=== PATIENT | male | born 1970 | race Caucasian/White ===

== ENCOUNTER 2018-09-16 12:37 | Outpatient (CLI) | payer OTHER, SELFPAY ==
[2018-09-16 15:10] LABS: Abs Immature Grans 0.02 k/cumm (0.0-0.09); Absolute Basophil Count 0.02 k/cumm (0.0-0.2); Absolute Eosinophil Count 0.16 k/cumm (0.0-0.7); Absolute Lymphocyte Count 1.29 k/cumm (1.2-3.4); Absolute Monocyte Count 0.78 k/cumm (0.11-0.7); Absolute Neutrophil Count 6.65 k/cumm (1.2-6.7); Basophils % 0.2; Eosinophils % 1.8; HGB 15.8 g/dL (13.5-17.5); Immature Grans % 0.2; Lymphocytes % 14.5; Mean Corp. HGB Concentration 33.6 g/dL (32.0-36.0); Mean Corpuscular Hemoglobin 34.6 pg (27.0-33.0); Mean Corpuscular Volume 103.1 fL (80-95); Mean Platelet Volume 9.5 fL (8.0-11.0); Monocytes % 8.7; Neutrophils % 74.6; Platelet Count 257 x1000/uL (130-400); RBC 4.56 m/cumm (4.50-6.00); RBC Distribution Width 12.6 % (11.8-14.1); White Blood Cell Count 8.92 k/cumm (4.4-10.8)
[2018-09-16 15:32] LABS: Bilirubin Negative (Negative); Blood Negative (Negative); Clarity Clear; Glucose Negative (Negative); Ketones Trace mg/dL (Negative); Leukocyte Esterase Negative (Negative); Nitrite Negative (Negative); Specific Gravity >= 1.030 (1.005-1.025); Urobilinogen 0.2 EU/dL (Up TO 0.2); pH 5.5 (5-8)
[2018-09-16 15:46] LABS: Bacteria Rare HPF (Negative); C & S Indicated? No; Casts Negative LPF (Negative); Crystals Negative HPF (Negative); Epithelial Cells Rare HPF (Negative); Mucus Negative (Negative); Other Cells Negative (Negative); RBC Negative (0-2); WBC 0-2 HPF (0-5)
[2018-09-16 16:01] LABS: ESR 11 MM/HR (0-15)
[2018-09-16 17:07] LABS: ALT 30 U/L (12-78); AST 19 U/L (15-37); Albumin 3.6 g/dL (3.4-5.0); Alkaline Phosphatase 58 U/L (46-116); Anion Gap 8.3 mmol/L (3-11); BUN 19 mg/dL (7-18); Bilirubin, Total 0.4 mg/dL (0.2-1.0); CO2 29.7 mmol/L (21.0-32.0); CREATININE 0.93 mg/dL (0.70-1.30); Chloride 103 mmol/L (98-107); Glucose 89 mg/dL (70-100); Potassium 4.2 mmol/L (3.5-5.1); Sodium 141 mmol/L (136-145)
== END 2018-09-16 12:57 ==
PROVIDERS: PCP Emergency Medicine; Visit Provider Internal Medicine Rheumatology
DX: M31.30 Wegener's granulomatosis without renal involvement (principal); Z79.899 Other long term (current) drug therapy
CPT/HCPCS: 36415; 80053; 85652; 81003; 81015; 85025

== ENCOUNTER 2019-04-22 13:23 | Outpatient (CLI) | payer OTHER, SELFPAY ==
[2019-04-22 14:09] LABS: Abs Immature Grans 0.03 k/cumm (0.0-0.09); Absolute Basophil Count 0.03 k/cumm (0.0-0.2); Absolute Eosinophil Count 0.14 k/cumm (0.0-0.7); Absolute Lymphocyte Count 1.43 k/cumm (1.2-3.4); Absolute Monocyte Count 0.74 k/cumm (0.11-0.7); Absolute Neutrophil Count 5.32 k/cumm (1.2-6.7); Basophils % 0.4; Eosinophils % 1.8; HCT 45.7 % (40.0-50.0); HGB 15.5 g/dL (13.5-17.5); Immature Grans % 0.4; Lymphocytes % 18.6; Mean Corp. HGB Concentration 33.9 g/dL (32.0-36.0); Mean Corpuscular Hemoglobin 34.8 pg (27.0-33.0); Mean Corpuscular Volume 102.5 fL (80-95); Mean Platelet Volume 9.7 fL (8.0-11.0); Monocytes % 9.6; Neutrophils % 69.2; Platelet Count 250 x1000/uL (130-400); RBC 4.46 m/cumm (4.50-6.00); RBC Distribution Width 12.7 % (11.8-14.1); White Blood Cell Count 7.69 k/cumm (4.4-10.8)
[2019-04-22 14:49] LABS: ESR 12 MM/HR (0-15)
[2019-04-22 14:53] LABS: Bilirubin Negative (Negative); Blood Negative (Negative); Clarity Clear (Clear); Glucose Negative (Negative); Ketones Trace mg/dL (Negative); Leukocyte Esterase Negative (Negative); Nitrite Negative (Negative); Specific Gravity 1.025 (1.005-1.025); Urobilinogen 0.2 EU/dL (Up TO 0.2); pH 5.5 (5-8)
[2019-04-22 15:04] LABS: Bacteria Negative HPF (Negative); C & S Indicated? No; Casts Negative LPF (Negative); Crystals Negative HPF (Negative); Epithelial Cells Negative HPF (Negative); Mucus Trace (Negative); RBC Negative (0-2); WBC 0-2 HPF (0-5)
[2019-04-22 15:44] LABS: ALT 43 U/L (12-78); AST 28 U/L (15-37); Albumin 3.6 g/dL (3.4-5.0); Alkaline Phosphatase 59 U/L (46-116); Anion Gap 6.9 mmol/L (3-11); BUN 17 mg/dL (7-18); Bilirubin, Total 0.5 mg/dL (0.2-1.0); CO2 29.1 mmol/L (21.0-32.0); CREATININE 0.82 mg/dL (0.70-1.30); Calcium 8.8 mg/dL (8.5-10.1); Chloride 103 mmol/L (98-107); Glucose 84 mg/dL (70-100); Potassium 4.2 mmol/L (3.5-5.1); Sodium 139 mmol/L (136-145)
== END 2019-04-22 13:43 ==
PROVIDERS: PCP Emergency Medicine; Visit Provider Internal Medicine Rheumatology
DX: M31.30 Wegener's granulomatosis without renal involvement (principal); Z79.899 Other long term (current) drug therapy
CPT/HCPCS: 36415; 80053; 85652; 81003; 81015; 85025

== ENCOUNTER 2019-10-29 11:49 | Outpatient (CLI) | payer OTHER, SELFPAY ==
[2019-10-29 15:06] LABS: Abs Immature Grans 0.02 k/cumm (0.0-0.09); Absolute Basophil Count 0.02 k/cumm (0.0-0.2); Absolute Eosinophil Count 0.15 k/cumm (0.0-0.7); Absolute Lymphocyte Count 1.45 k/cumm (1.2-3.4); Absolute Monocyte Count 0.73 k/cumm (0.11-0.7); Absolute Neutrophil Count 4.74 k/cumm (1.2-6.7); Basophils % 0.3; Eosinophils % 2.1; HCT 47.5 % (40.0-50.0); Immature Grans % 0.3 %; Lymphocytes % 20.4; Mean Corp. HGB Concentration 33.7 g/dL (32.0-36.0); Mean Corpuscular Hemoglobin 34.2 pg (27.0-33.0); Mean Corpuscular Volume 101.5 fL (80-95); Mean Platelet Volume 9.4 fL (8.0-11.0); Monocytes % 10.3; Neutrophils % 66.6; Platelet Count 291 x1000/uL (130-400); RBC 4.68 m/cumm (4.50-6.00); RBC Distribution Width 12.6 % (11.8-14.1); White Blood Cell Count 7.11 k/cumm (4.4-10.8)
[2019-10-29 15:10] LABS: Bilirubin Negative (Negative); Blood Negative (Negative); Clarity Clear (Clear); Glucose Negative (Negative); Ketones Negative (Negative); Leukocyte Esterase Negative (Negative); Nitrite Negative (Negative); Specific Gravity >= 1.030 (1.005-1.025); Urobilinogen 0.2 EU/dL (Up TO 0.2); pH 5.5 (5-8)
[2019-10-29 15:22] LABS: Bacteria Negative HPF (Negative); Crystals Negative HPF (Negative); Epithelial Cells Negative HPF (Negative); Mucus Trace (Negative); Other Cells Negative (Negative); RBC 0-2 HPF (0-2); WBC 0-2 HPF (0-5)
[2019-10-29 15:23] LABS: C & S Indicated? No; Casts 0-2 Hyaline LPF (Negative)
[2019-10-29 15:53] LABS: ALT 38 U/L (16-63); AST 26 U/L (15-37); Albumin 3.6 g/dL (3.4-5.0); Alkaline Phosphatase 54 U/L (46-116); Anion Gap 7.2 mmol/L (3-11); BUN 21 mg/dL (7-18); Bilirubin, Total 0.4 mg/dL (0.2-1.0); CO2 28.8 mmol/L (21.0-32.0); CREATININE 1.21 mg/dL (0.70-1.30); Calcium 8.7 mg/dL (8.5-10.1); Chloride 105 mmol/L (98-107); Glucose 90 mg/dL (74-106); Potassium 4.1 mmol/L (3.5-5.1); Sodium 141 mmol/L (136-145)
[2019-10-29 18:16] LABS: ESR 13 mm/hr (1-20)
== END 2019-10-29 12:09 ==
PROVIDERS: PCP Emergency Medicine; Visit Provider Internal Medicine Rheumatology
DX: M31.30 Wegener's granulomatosis without renal involvement (principal); Z79.899 Other long term (current) drug therapy
CPT/HCPCS: 36415; 80053; 85652; 81003; 81015; 85025

== ENCOUNTER 2020-04-15 03:28 | Outpatient (CLI) | payer OTHER, SELFPAY ==
[2020-04-15 14:29] LABS: Abs Immature Grans 0.02 k/cumm (0.0-0.09); Absolute Basophil Count 0.02 k/cumm (0.0-0.2); Absolute Eosinophil Count 0.09 k/cumm (0.0-0.7); Absolute Lymphocyte Count 1.15 k/cumm (1.2-3.4); Absolute Monocyte Count 0.68 k/cumm (0.11-0.7); Absolute Neutrophil Count 6.36 k/cumm (1.2-6.7); Basophils % 0.2; Eosinophils % 1.1; HCT 46.6 % (40.0-50.0); Immature Grans % 0.2 %; Lymphocytes % 13.8; Mean Corp. HGB Concentration 34.3 g/dL (32.0-36.0); Mean Corpuscular Hemoglobin 35.2 pg (27.0-33.0); Mean Corpuscular Volume 102.6 fL (80-95); Mean Platelet Volume 9.6 fL (8.0-11.0); Monocytes % 8.2; Neutrophils % 76.5; Platelet Count 292 x1000/uL (130-400); RBC 4.54 m/cumm (4.50-6.00); RBC Distribution Width 12.7 % (11.8-14.1); White Blood Cell Count 8.32 k/cumm (4.4-10.8)
[2020-04-15 14:37] LABS: Bilirubin Negative (Negative); Blood Negative (Negative); Clarity Clear (Clear); Glucose Negative (Negative); Ketones Negative (Negative); Leukocyte Esterase Negative (Negative); Nitrite Negative (Negative); Specific Gravity >= 1.030 (1.005-1.025); Urobilinogen 0.2 EU/dL (Up TO 0.2)
[2020-04-15 15:11] LABS: ESR 10 mm/hr (1-20)
[2020-04-15 16:52] LABS: ALT 36 U/L (16-63); AST 26 U/L (15-37); Albumin 3.8 g/dL (3.4-5.0); Alkaline Phosphatase 51 U/L (46-116); Anion Gap 9.7 mmol/L (3-11); BUN 18 mg/dL (7-18); Bilirubin, Total 0.5 mg/dL (0.2-1.0); CO2 26.3 mmol/L (21.0-32.0); CREATININE 0.95 mg/dL (0.70-1.30); Calcium 9.1 mg/dL (8.5-10.1); Chloride 105 mmol/L (98-107); Glucose 80 mg/dL (74-106); Potassium 4.3 mmol/L (3.5-5.1); Sodium 141 mmol/L (136-145); Total Protein 7.3 g/dL (6.4-8.2)
[2020-04-18 17:49] LABS: Calculated LDL 82 mg/dL (<100); Cholesterol 139 mg/dL (<200); HDL Cholesterol 49 mg/dL (40-60); Triglyceride 43 mg/dL (<150)
== END 2020-04-15 03:48 ==
PROVIDERS: PCP Emergency Medicine; Visit Provider Internal Medicine Rheumatology
DX: M31.30 Wegener's granulomatosis without renal involvement (principal); Z79.899 Other long term (current) drug therapy
CPT/HCPCS: 36415; 80053; 80061; 85652; 81003; 85025

== ENCOUNTER 2020-10-14 02:56 | Outpatient (CLI) | payer OTHER, SELFPAY ==
[2020-10-14 14:55] LABS: Abs Immature Grans 0.03 10^3/uL (0.0-0.06); Absolute Basophil Count 0.04 10^3/uL (0.0-0.2); Absolute Eosinophil Count 0.19 10^3/uL (0.0-0.7); Absolute Lymphocyte Count 1.44 10^3/uL (1.2-3.4); Absolute Monocyte Count 0.88 10^3/uL (0.1-0.8); Absolute Neutrophil Count 5.77 10^3/uL (1.2-6.7); Basophils % 0.5; Bilirubin Negative (Negative); Blood Negative (Negative); Clarity Clear (Clear); Eosinophils % 2.3; Glucose Negative (Negative); HCT 48.3 % (40.0-50.0); HGB 16.5 g/dL (13.5-17.5); Immature Grans % 0.4; Ketones Negative (Negative); Leukocyte Esterase Negative (Negative); Lymphocytes % 17.2; MCH 34.9 pg (27.0-33.0); MCHC 34.2 % (32.0-36.0); MCV 102.1 fL (80-95); MPV 9.4 fL (8.0-11.0); Monocytes % 10.5; Neutrophils % 69.1; Nitrite Negative (Negative); Nucleated RBC 0 %; Platelet Count 285 10^3/uL (130-400); RBC 4.73 10^6/uL (4.36-5.78); RDW 12.3 % (11.8-14.1); RDW-SD 47.5 fL; Specific Gravity >= 1.030 (1.005-1.025); Urobilinogen 0.2 EU/dL (Up TO 0.2); WBC 8.35 10^3/uL (4.4-10.8); pH 5.5 (5-8)
[2020-10-14 15:20] LABS: Bacteria Few HPF (Negative); C & S Indicated? Yes; Casts Negative LPF (Negative); Crystals Negative HPF (Negative); Epithelial Cells Negative HPF (Negative); Mucus Trace (Negative); RBC 0-2 HPF (0-2)
[2020-10-14 15:41] LABS: ALT 34 U/L (16-63); AST 23 U/L (15-37); Albumin 3.7 g/dL (3.4-5.0); Alkaline Phosphatase 59 U/L (46-116); BUN 25 mg/dL (7-18); Bilirubin, Total 0.4 mg/dL (0.2-1.0); Calcium 8.8 mg/dL (8.5-10.1); Chloride 104 mmol/L (98-107); Glucose 85 mg/dL (74-106); Potassium 4.4 mmol/L (3.5-5.1); Sodium 139 mmol/L (136-145); Total Protein 7.3 g/dL (6.4-8.2)
[2020-10-14 16:08] LABS: ESR 12 mm/hr (1-20)
== END 2020-10-14 03:16 ==
PROVIDERS: PCP Emergency Medicine; Visit Provider Internal Medicine Rheumatology
DX: M31.30 Wegener's granulomatosis without renal involvement (principal); Z79.899 Other long term (current) drug therapy
CPT/HCPCS: 36415; 80053; 85652; 81003; 81015; 85025; 87086

== ENCOUNTER 2021-04-20 15:33 | Outpatient (CLI) | payer OTHER, SELFPAY ==
[2021-04-20 15:57] LABS: Abs Immature Grans 0.05 10^3/uL (0.0-0.06); Absolute Basophil Count 0.06 10^3/uL (0.0-0.2); Absolute Eosinophil Count 0.08 10^3/uL (0.0-0.7); Absolute Lymphocyte Count 1.18 10^3/uL (1.2-3.4); Absolute Monocyte Count 0.82 10^3/uL (0.1-0.8); Absolute Neutrophil Count 8.03 10^3/uL (1.2-6.7); Basophils % 0.6; Eosinophils % 0.8; HCT 44.5 % (40.0-50.0); Immature Grans % 0.5; Lymphocytes % 11.5; MCH 34.6 pg (27.0-33.0); MCHC 33.7 % (32.0-36.0); MCV 102.8 fL (80-95); Neutrophils % 78.6; Nucleated RBC 0 %; Platelet Count 319 10^3/uL (130-400); RBC 4.33 10^6/uL (4.36-5.78); RDW 12.6 % (11.8-14.1); RDW-SD 47.4 fL; WBC 10.22 10^3/uL (4.4-10.8)
[2021-04-20 15:58] LABS: ESR 11 mm/hr (0-20)
[2021-04-20 16:01] LABS: Bilirubin Negative (Negative); Blood Negative (Negative); Clarity Clear (Clear); Glucose Negative (Negative); Ketones Negative (Negative); Leukocyte Esterase Negative (Negative); Nitrite Negative (Negative); Specific Gravity >= 1.030 (1.005-1.025); Urobilinogen 0.2 EU/dL (Up TO 0.2); pH 5.5 (5-8)
[2021-04-20 16:11] LABS: Bacteria Negative HPF (Negative); Crystals Negative HPF (Negative); Epithelial Cells Rare HPF (Negative); RBC 0-2 HPF (0-2); WBC 0-2 HPF (0-5)
[2021-04-20 16:12] LABS: C & S Indicated? No; Casts Negative LPF (Negative); Mucus Trace (Negative)
[2021-04-20 16:46] LABS: ALT 34 U/L (16-63); AST 24 U/L (15-37); Albumin 3.5 g/dL (3.4-5.0); Alkaline Phosphatase 56 U/L (46-116); Anion Gap 7.1 mmol/L (3-11); BUN 21 mg/dL (7-18); Bilirubin, Total 0.4 mg/dL (0.2-1.0); CO2 27.9 mmol/L (21.0-32.0); CREATININE 1.1 mg/dL (0.70-1.30); Calcium 8.9 mg/dL (8.5-10.1); Chloride 106 mmol/L (98-107); Glucose 88 mg/dL (74-106); Potassium 4.3 mmol/L (3.5-5.1); Sodium 141 mmol/L (136-145)
== END 2021-04-20 15:34 | disposition home or self-care (01) ==
PROVIDERS: PCP Emergency Medicine; Visit Provider Internal Medicine Rheumatology
DX: M31.30 Wegener's granulomatosis without renal involvement (principal); Z79.899 Other long term (current) drug therapy
CPT/HCPCS: 80053; 85652; 81003; 81015; 85025

== ENCOUNTER 2021-10-13 03:48 | Outpatient (CLI) | payer OTHER, SELFPAY ==
[2021-10-13 15:07] LABS: Abs Immature Grans 0.05 10^3/uL (0.0-0.06); Absolute Basophil Count 0.05 10^3/uL (0.0-0.2); Absolute Eosinophil Count 0.15 10^3/uL (0.0-0.7); Absolute Lymphocyte Count 1.22 10^3/uL (1.2-3.4); Absolute Monocyte Count 0.81 10^3/uL (0.1-0.8); Absolute Neutrophil Count 7.11 10^3/uL (1.2-6.7); Basophils % 0.5; Eosinophils % 1.6; HCT 45.6 % (40.0-50.0); HGB 15.2 g/dL (13.5-17.5); Immature Grans % 0.5; MCH 34.5 pg (27.0-33.0); MCHC 33.3 % (32.0-36.0); MCV 103.4 fL (80-95); Monocytes % 8.6; Neutrophils % 75.8; Nucleated RBC 0 %; RBC 4.41 10^6/uL (4.36-5.78); RDW 12.3 % (11.8-14.1); RDW-SD 47.4 fL; WBC 9.39 10^3/uL (4.4-10.8)
[2021-10-13 15:24] LABS: Diff Comment PLT Morph Reviewed; RBC Morphology Normal
[2021-10-13 16:10] LABS: Calculated LDL 87 mg/dL (<100); Cholesterol 147 mg/dL (<200); HDL Cholesterol 46 mg/dL (40-60); Triglyceride 73 mg/dL (<150)
[2021-10-13 16:40] LABS: ALT 37 U/L (16-63); AST 29 U/L (15-37); Albumin 3.6 g/dL (3.4-5.0); Alkaline Phosphatase 61 U/L (46-116); Anion Gap 7.9 mmol/L (3-11); BUN 20 mg/dL (7-18); Bilirubin, Total 0.4 mg/dL (0.2-1.0); C-Reactive Protein 0.65 mg/dL (0.0-0.3); CO2 28.1 mmol/L (21.0-32.0); CREATININE 0.9 mg/dL (0.70-1.30); Calcium 8.5 mg/dL (8.5-10.1); Chloride 102 mmol/L (98-107); Glucose 80 mg/dL (74-106); Potassium 4.5 mmol/L (3.5-5.1); Sodium 138 mmol/L (136-145); Total Protein 7.5 g/dL (6.4-8.2)
[2021-10-16 09:45] LABS: PSA, Screening 3.6 ng/mL (0.0-3.5)
== END 2021-10-13 03:49 | disposition home or self-care (01) ==
LOC: LBO 03:48
PROVIDERS: Internal Medicine Rheumatology; PCP Nurse Practitioner Family; Visit Provider Nurse Practitioner Family
DX: Z13.220 Encounter for screening for lipoid disorders (principal); Z12.5 Encounter for screening for malignant neoplasm of prostate; M31.30 Wegener's granulomatosis without renal involvement; Z79.899 Other long term (current) drug therapy
CPT/HCPCS: 36415; 80053; 80061; 84153; 85025; 86140

== ENCOUNTER 2021-11-09 03:01 | Outpatient (CLI) | payer OTHER, SELFPAY ==
[2021-11-09 14:40] LABS: Abs Immature Grans 0.04 10^3/uL (0.0-0.06); Absolute Basophil Count 0.05 10^3/uL (0.0-0.2); Absolute Eosinophil Count 0.15 10^3/uL (0.0-0.7); Absolute Lymphocyte Count 1.31 10^3/uL (1.2-3.4); Absolute Monocyte Count 0.69 10^3/uL (0.1-0.8); Absolute Neutrophil Count 5.18 10^3/uL (1.2-6.7); Basophils % 0.7; HCT 43.2 % (40.0-50.0); HGB 14.3 g/dL (13.5-17.5); Immature Grans % 0.5; Lymphocytes % 17.7; MCHC 33.1 % (32.0-36.0); MCV 102.6 fL (80-95); Monocytes % 9.3; Neutrophils % 69.8; Nucleated RBC 0 %; Platelet Count 359 10^3/uL (130-400); RBC 4.21 10^6/uL (4.36-5.78); RDW 12.4 % (11.8-14.1); RDW-SD 46.4 fL; WBC 7.42 10^3/uL (4.4-10.8)
[2021-11-09 15:25] LABS: ALT 26 U/L (16-63); AST 18 U/L (15-37); Albumin 3.4 g/dL (3.4-5.0); Alkaline Phosphatase 62 U/L (46-116); Anion Gap 6.7 mmol/L (3-11); BUN 17 mg/dL (7-18); Bilirubin, Total 0.3 mg/dL (0.2-1.0); C-Reactive Protein 0.86 mg/dL (0.0-0.3); CO2 28.3 mmol/L (21.0-32.0); CREATININE 0.9 mg/dL (0.70-1.30); Calcium 8.7 mg/dL (8.5-10.1); Chloride 103 mmol/L (98-107); Glucose 88 mg/dL (74-106); Potassium 4.5 mmol/L (3.5-5.1); Sodium 138 mmol/L (136-145); Total Protein 7.2 g/dL (6.4-8.2)
== END 2021-11-09 03:02 | disposition home or self-care (01) ==
LOC: LBO 03:01
PROVIDERS: PCP Nurse Practitioner Family; Visit Provider Internal Medicine Rheumatology
DX: M31.30 Wegener's granulomatosis without renal involvement (principal); Z79.899 Other long term (current) drug therapy
CPT/HCPCS: 36415; 80053; 85025; 86140

== ENCOUNTER 2022-02-05 06:13 | Day surgery (SDC) | payer OTHER, SELFPAY ==
--- NOTE | 2022-02-04 18:22 | W.ANESPRE ---
General Info Date of Service Date Performed: 02/05/22 Height: 5 ft 9 in Weight: 112.491 kg Body Mass Index (BMI): 36.6 Surgical Procedure: Operation Date: 02/05/22 07:35 Proposed Procedure Side Surgeon p Colonoscopy Lian Pavon MD Meds Allergies and Home Medications Allergies Allergy/AdvReac Type Severity Reaction Status Date / Time codeine AdvReac Intermediate vomiting Verified 02/05/22 06:32 Home Medication Medication Instructions Recorded azathioprine 50 mg tablet 100 mg PO DAILY tab 06/08/21 cholecalciferol (vitamin D3) 25 25 mcg PO DAILY 06/08/21 mcg (1,000 unit) capsule cyanocobalamin (vitamin B-12) 5,000 mcg PO .weekly cap 06/08/21 5,000 mcg capsule folic acid 1 mg tablet 1 mg PO DAILY 06/08/21 losartan 100 mg tablet 100 mg PO HS 06/08/21 bisacodyl 5 mg tablet,delayed 5 mg PO ONCE #4 tab 01/12/22 release (Dulcolax (bisacodyl)) polyethylene glycol 3350 17 17 g PO ONCE #238 g 01/12/22 gram/dose oral powder Current Visit Medications: Current Medications Generic Name Dose Route Start Last Admin Trade Name Freq PRN Reason Stop Dose Admin Ringer's Solution 1,000 mls @ 80 mls/hr 02/05/22 06:00 IV 03/04/22 23:59 INFUSION SERGE IV Miscellaneous Supplies 1 each 02/05/22 06:00 Iv Access IV 03/04/22 23:59 DIRECTED SERGE Sodium Chloride 0 ml 02/05/22 06:00 Normal Saline Flush 10 Ml Syr IV 03/04/22 23:59 PRN PRN Sodium Chloride 0 ml 02/05/22 06:00 Normal Saline 10 Ml Vial IJ 03/04/22 23:59 DIRECTED PRN Sterile Water 0 ml 02/05/22 06:00 Water,Injection,Sterile 10 Ml Vial IJ 03/04/22 23:59 DIRECTED PRN PFSH Active Problems Active Problems: Problem Status Onset Code Screening for colon cancer Z12.11 Medical History Medical History Essential (primary) hypertension Granulomatosis with polyangiitis Right knee pain Surgical History Surgical History History of appendectomy Tobacco Smoking/Tobacco Use Status: Never Passive smoking exposure: Yes Second hand exposure: Yes Alcohol Alcohol Intake: never Substance Use Substance use: Never Substance use type: does not use Vital Signs and Lab Results Lab Results Blood Type / Crossmatch: No Data to Display Complete Blood Count: No Data to Display Complete Metabolic Panel: No Data to Display Liver Function Panel: No Data to Display Coagulation Panel: No Data to Display Cardiac Panel: No Data to Display Arterial Blood Gas: No Data to Display Venous Blood Gas: No Data to Display Pancreas Panel: No Data to Display Thyroid Panel: No Data to Display Infectious Disease: No Data to Display Blood Cultures: No Data to Display Toxicology Panel: No Data to Display Anesthesia Assessment and Plan Anesthesia History Personal History: No History of Anesthesia Complications Family History: No Family History of Anesthesia Complications and Family History Unknown Exercise Tolerance Exercise Tolerance: Metabolic Equivalents>4 Cardiac & Pulmonary Exam Cardiac Exam: Normal S1/S2 Heart Sounds Pulmonary Exam: Clear Bilateral Breath Sounds Implantable Cardiac Device Does patient have a Pacemaker or an ICD?: No Airway Exam Known Difficult Airway: No Mallampati Class: 3 Mouth Opening: Narrow (< 3cm) Thyromental Distance: Greater than 3 cm Neck Range of Motion: Full ROM Neck Circumference: Normal Teeth Condition: Normal Dentition ASA Classification ASA Score: ASA 2 Emergency Case?: No NPO Status NPO Status: NPO Clears >2 hours, Solids >8 hours Anesthesia Plan Resuscitation Status: Full Code Anesthesia Technique: General Anesthesia Airway Planned: Natural Airway Monitors Used: Standard Monitors Preoperative Comments:: 51 yo male for screening colo. Sig PMHx: HTN (losartan),granulomatosis with polyangitis, fascioscapulohumeral muscular dystrophy, never smoker/EtOH.
[2022-02-05 06:35] VITALS: BP 150/103; PULSE 87; RESP 18; TEMP 36.5; O2SAT 98
--- NOTE | 2022-02-05 06:35 | W.COLOREPORT ---
Colonoscopy Report Date of procedure: 02/05/22 Pre-op diagnosis general: Colon Cancer Screening Post-op diagnosis procedure note: other (polyps and diverticulosis) Procedure: Colonoscopy with polypectomy Surgeon: Lian Pavon Anesthesia Type: General:No Airway Estimated blood loss (mL): 3 Pathology: other (Transverse polyp) Complications: None Disposition: same day Indications: 51 y/o male with history of HTN and? Geri's granulomatosis presents for his first colonoscopy screening pre-op. He denies a family history of colon cancer. He denies any changes in bowel habits including bloody or black tarry stools, abdominal pain, diarrhea or constipation.? Prep: Miralax/Dulcolax Procedure Start Time: 07:26 Procedure End Time: 07:47 Retraction Time: 12 minutes Findings: One sessile polyp Moderate sigmoid diverticulosis Procedure Description: After informed consent was obtained the patient was taken to the procedure room and placed in a left decubitous position. Monitors were applied and a time out was done. The patients name, date of , procedure, allergies to medications and metal in their body was reviewed. The patient was then sedated. Once sedated and comfortable a rectal exam was done. External exam was normal. Internal exam revealed a normal sphincter tone and no palpable masses. The prostate felt smooth. The scope was then introduced and retro-flexed. No internal hemorrhoids, polyps or masses were identified on retro-flexion. The scope was then advanced to the cecum without difficulty. The ileocecal vlave and appendiceal orifice were identified. The prep was good. The scope was then slowly retracted over 12 minutes back into the rectum. Polyps were removed with cold forceps in the Transverse colon. There was moderate sigmoid diverticulosis noted. The scope was removed and the patient was woken up and taken back to Same day surgery in stable condition. The patient tolerated the procedure well and there were no immediate complications. Follow up: The patient should follow up in 5 years unless they develop changes in bowel habits or other new gastrointestinal complaints.
--- NOTE | 2022-02-05 06:37 | W.PM.DSUDISC ---
Discharge Plan Disposition Patient Disposition: HOME Condition: Good Discharge Details Reason For Visit: Colonoscopy Attending Provider: Lian Pavon Primary Care Provider: Sukhdev Guadalupe Home Meds and New Rx's Prescriptions: Continued folic acid 1 mg tablet 1 mg PO DAILY 0RF cholecalciferol (vitamin D3) 25 mcg (1,000 unit) capsule 25 mcg PO DAILY 0RF losartan 100 mg tablet 100 mg PO HS 0RF azathioprine 50 mg tablet 100 mg PO DAILY 0RF cyanocobalamin (vitamin B-12) 5,000 mcg capsule 5,000 mcg PO .weekly 0RF Discontinued bisacodyl [Dulcolax (bisacodyl)] 5 mg tablet,delayed release (DR/EC) 5 mg PO ONCE Qty: 4 0RF Rx Instructions: Take according to provider's instructions for colonoscopy prep. polyethylene glycol 3350 17 gram/dose powder 17 g PO ONCE Qty: 238 0RF Rx Instructions: To be taken as directed by prescriber's office for colonoscopy prep. Discharge Instructions Instructions: Diverticulosis (DC), Colorectal Polyps (DC) Additional Instructions: Findings: one polyp diverticulosis Follow up: 5 years Please call if you develop: fevers >101.5 Nausea or Vomiting Abdominal pain that is not transient Rectal bleeding that is more then a tbsp A hard abdomen and inability to pass gas DAY SURGERY UNIT POST ENDOSCOPY INSTRUCTIONS Instructions for everyone who is given Anesthesia: For your safety, please do the following for the next 24 Hours: a. Do not drive or operate dangerous equipment b. Do not drink alcohol beverages or use any recreational drugs for the first 24 hours or while taking pain medications. The medications in your body may have a reaction that can be dangerous. c. Do not make any important decisions or sign any important papers 1. Generally there are no restrictions on your activity after a day or so has gone by, but you may feel a bit fatigued for a few days. 2. After you arrive home you may have a light meal and return to a normal diet as you can tolerate it without feeling sick to your stomach. 3. After surgery, you may feel pain or discomfort. This should be only transient, but if it persists please contact your doctor. 4. If there are any questions regarding the findings of your procedure, please feel free to contact your doctor. 6. If you are unable to contact your doctor with a problem, contact the hospital at [phone]. 2. Continue all your regular medications unless directed otherwise. I understand the above instructions and have no questions. Signature of Patient or Responsible Adult Escort Date/Time Name of Responsible Adult Escort Signature of Nurse Date/Time Activity:: Activity as Tolerated Diet:: high fiebr diet Discharge Orders Discharge Orders: Discharge Order (Routine); Ordered 02/05/22 Ordered By: Lian Pavon
[2022-02-05] MEDS: Lactated Ringers 1,000 ML 80 ML IV (06:45)
[2022-02-05 06:56] VITALS: BMI 36.6
--- NOTE | 2022-02-05 07:40 | BOWEL_PTH ---
PATIENT: Bijan Carr LOC: [facility] U#:[id number] AGE/SX: 51/M ROOM: RE02/05/[address]: Lian Pavon MD : [id number] BED: DIS: 02/05/2022 SPEC #: [id number] RECD: 02/05/22 12:39 STATUS: DIONICIO REQ #: [id number] NICHOLAS: 02/05/22 07:[address]: Lian Pavon DEPT: Surgical Specimen RECD BY: Debbie Martinez ENTERED: 02/05/22 12:39 SP TYPE: Bowel OTHR DR: Sukhdev Guadalupe, HUI Tissues: 1 - BIOPSY BOWEL Procedures: GROSS AND MICRO LEVEL 4 Comments: [id number]
[2022-02-05 07:58] VITALS: BP 139/69; PULSE 74; RESP 17; TEMP 36.4; O2SAT 96
--- NOTE | 2022-02-05 08:01 | W.ANESPOSTOP ---
Postoperative Evaluation Date, Time and Location Date Performed: 02/05/22 Time Performed: 08:01 Patient Location: Day Surgery Unit Vital Signs Most Recent Imported Vital Signs: Most Recent Vital Signs Temp Pulse Resp BP Pulse Ox 36.4 C L 74 17 139/69 96 02/05/22 07:58 02/05/22 07:58 02/05/22 07:58 02/05/22 07:58 02/05/22 07:58 Pain Score Most Recent Pain Score: Most Recent Pain Score Pain Level 0 02/05/22 07:58 Assessment Mental Status: Arousable with meaningful communication Airway and Respiratory Function: Patent airway with normal (patient baseline) respiratory exam Cardiovascular Function: Hemodynamically Stable Hydration Status: Adequately Hydrated Nausea & Vomiting: No Nausea or Vomiting Pain: Pt. Denies Any Pain Peripheral Nerve Block: Patient did not receive a nerve block
[2022-02-05 08:16] VITALS: BP 136/95; PULSE 67; RESP 18; TEMP 36.7; O2SAT 96
== END 2022-02-05 09:17 | disposition home or self-care (01) ==
PROVIDERS: PCP Nurse Practitioner Family; Visit Provider Surgery
PROC: 0DJD8ZZ Inspection of Lower Intestinal Tract, Via Natural or Artificial Opening Endoscopic (ICD-10-PCS; CPT 45378; principal; 2022-02-05 07:30)
DX: Z12.11 Encounter for screening for malignant neoplasm of colon (principal); K63.5 Polyp of colon; K57.30 Diverticulosis of large intestine without perforation or abscess without bleeding
CPT/HCPCS: 45380; 88305

== ENCOUNTER 2022-04-12 04:08 | Outpatient (CLI) | payer OTHER, SELFPAY ==
[2022-04-12 15:08] LABS: ESR 16 mm/hr (0-20)
[2022-04-12 15:09] LABS: Abs Immature Grans 0.04 10^3/uL (0.0-0.06); Absolute Basophil Count 0.05 10^3/uL (0.0-0.2); Absolute Eosinophil Count 0.16 10^3/uL (0.0-0.7); Absolute Monocyte Count 0.84 10^3/uL (0.1-0.8); Absolute Neutrophil Count 7.92 10^3/uL (1.2-6.7); Basophils % 0.5; Eosinophils % 1.6; HCT 45.6 % (40.0-50.0); HGB 15.6 g/dL (13.5-17.5); Immature Grans % 0.4; Lymphocytes % 10.9; MCH 34.3 pg (27.0-33.0); MCHC 34.2 % (32.0-36.0); MCV 100 fL (80-95); MPV 9.6 fL (8.0-11.0); Monocytes % 8.3; Neutrophils % 78.3; Platelet Count 306 10^3/uL (130-400); RBC 4.55 10^6/uL (4.36-5.78); RDW 13.2 % (11.8-14.1); WBC 10.11 10^3/uL (4.4-10.8)
[2022-04-12 16:15] LABS: ALT 30 U/L (16-63); AST 23 U/L (15-37); Albumin 3.4 g/dL (3.4-5.0); Alkaline Phosphatase 59 U/L (46-116); Anion Gap 7.8 mmol/L (3-11); BUN 22 mg/dL (7-18); Bilirubin, Total 0.3 mg/dL (0.2-1.0); CO2 26.2 mmol/L (21.0-32.0); CREATININE 0.8 mg/dL (0.70-1.30); Calcium 8.6 mg/dL (8.5-10.1); Chloride 103 mmol/L (98-107); Glucose 91 mg/dL (74-106); Potassium 4.4 mmol/L (3.5-5.1); Sodium 137 mmol/L (136-145); Total Protein 7.5 g/dL (6.4-8.2)
== END 2022-04-12 04:09 | disposition home or self-care (01) ==
LOC: LBO 04:08
PROVIDERS: PCP Nurse Practitioner Family; Visit Provider Internal Medicine Rheumatology
DX: M31.30 Wegener's granulomatosis without renal involvement (principal); Z79.899 Other long term (current) drug therapy
CPT/HCPCS: 36415; 80053; 85652; 85025; 86140

== ENCOUNTER 2022-10-22 03:09 | Outpatient (CLI) | payer OTHER, SELFPAY ==
[2022-10-22 14:49] LABS: Abs Immature Grans 0.03 10^3/uL (0.0-0.06); Absolute Basophil Count 0.05 10^3/uL (0.0-0.2); Absolute Eosinophil Count 0.14 10^3/uL (0.0-0.7); Absolute Lymphocyte Count 1.18 10^3/uL (1.2-3.4); Absolute Monocyte Count 0.76 10^3/uL (0.1-0.8); Absolute Neutrophil Count 7.25 10^3/uL (1.2-6.7); Basophils % 0.5; Eosinophils % 1.5; HCT 48.8 % (40.0-50.0); HGB 16.2 g/dL (13.5-17.5); Immature Grans % 0.3; Lymphocytes % 12.5; MCH 33.9 pg (27.0-33.0); MCHC 33.2 % (32.0-36.0); MCV 102 fL (80-95); MPV 9.3 fL (8.0-11.0); Monocytes % 8.1; Neutrophils % 77.1; Platelet Count 299 10^3/uL (130-400); RBC 4.78 10^6/uL (4.36-5.78); RDW 12.7 % (11.8-14.1); RDW-SD 48.5 fL; WBC 9.41 10^3/uL (4.4-10.8)
[2022-10-22 14:53] LABS: ESR 26 mm/hr (0-20)
[2022-10-22 15:53] LABS: ALT 23 U/L (16-63); AST 24 U/L (15-37); Albumin 2.9 g/dL (3.4-5.0); Alkaline Phosphatase 59 U/L (46-116); Anion Gap 2.9 mmol/L (3-11); BUN 24 mg/dL (7-18); Bilirubin, Total 0.3 mg/dL (0.2-1.0); C-Reactive Protein 0.31 mg/dL (0.0-0.3); CO2 30.1 mmol/L (21.0-32.0); CREATININE 1.1 mg/dL (0.70-1.30); Calcium 8.7 mg/dL (8.5-10.1); Chloride 104 mmol/L (98-107); Estimated GFR 79.77 (mL/min/1.73m2); Glucose 93 mg/dL (74-106); Potassium 5.3 mmol/L (3.5-5.1); Sodium 137 mmol/L (136-145); Total Protein 7.4 g/dL (6.4-8.2)
== END 2022-10-22 03:10 | disposition home or self-care (01) ==
PROVIDERS: PCP Nurse Practitioner Family; Visit Provider Internal Medicine Rheumatology
DX: M31.30 Wegener's granulomatosis without renal involvement (principal); Z79.899 Other long term (current) drug therapy
CPT/HCPCS: 36415; 80053; 85652; 85025; 86140

== ENCOUNTER 2022-11-23 01:15 | Outpatient (CLI) | payer OTHER, SELFPAY ==
[2022-11-23 15:20] LABS: Abs Immature Grans 0.06 10^3/uL (0.0-0.06); Absolute Basophil Count 0.05 10^3/uL (0.0-0.2); Absolute Eosinophil Count 0.22 10^3/uL (0.0-0.7); Absolute Lymphocyte Count 0.93 10^3/uL (1.2-3.4); Absolute Monocyte Count 0.88 10^3/uL (0.1-0.8); Absolute Neutrophil Count 6.53 10^3/uL (1.2-6.7); Basophils % 0.6; Eosinophils % 2.5; HCT 47.6 % (40.0-50.0); HGB 15.5 g/dL (13.5-17.5); Immature Grans % 0.7; Lymphocytes % 10.7; MCH 33.3 pg (27.0-33.0); MCHC 32.6 % (32.0-36.0); MCV 102 fL (80-95); MPV 9.3 fL (8.0-11.0); Monocytes % 10.1; Neutrophils % 75.4; Platelet Count 273 10^3/uL (130-400); RBC 4.65 10^6/uL (4.36-5.78); RDW-SD 49.6 fL; WBC 8.67 10^3/uL (4.4-10.8)
[2022-11-23 15:59] LABS: Iron 76 ug/dL (65-175); Total Iron Binding Capacity 233 ug/dL (250-450)
[2022-11-23 16:01] LABS: Ferritin 221 ng/mL (26-388); TSH (W/Ref FT4) 2.63 uIU/mL (0.36-3.74)
[2022-11-26 13:19] LABS: Transferrin 204 mg/dL (201-352)
== END 2022-11-23 01:16 | disposition home or self-care (01) ==
LOC: LBO 01:15
PROVIDERS: PCP Nurse Practitioner Family; Visit Provider Nurse Practitioner Family
DX: R53.83 Other fatigue (principal)
CPT/HCPCS: 36415; 82728; 83540; 83550; 84443; 84466; 85025

== ENCOUNTER 2023-01-25 09:47 | Outpatient (CLI) | payer OTHER, SELFPAY ==
--- NOTE | 2023-01-25 08:30 | DI.RAD_ITS ---
Exam(s) XR KNEE RT 3V AP,LAT,ADARSH EXAM: XR KNEE RT 3V AP,LAT,ADARSH CLINICAL HISTORY: right knee pain. TECHNIQUE: 2D digital imaging was performed. COMPARISON: No exams were available for comparison FINDINGS: 3 views No since acute fracture although there does appear to be a joint effusion. There is moderate narrowi ng of the medial compartment. Lateral compartment exhibits normal height. Some degenerative change also noted in the patellofemoral compartment. No significant osseous lesions. IMPRESSION: Degenerative changes. Joint effusion. DATA REPOSITORY: RADIATION DOSE DELIVERED:
== END 2023-01-25 09:48 | disposition home or self-care (01) ==
LOC: DIORS 09:47
PROVIDERS: PCP Nurse Practitioner Family; Referring Provider Nurse Practitioner Family; Visit Provider Physician Assistant
DX: M25.561 Pain in right knee (principal); M25.461 Effusion, right knee
CPT/HCPCS: 73562

== ENCOUNTER 2023-02-18 01:37 | Outpatient (CLI) | payer OTHER, SELFPAY ==
--- NOTE | 2023-02-18 08:21 | DI.MRI_ITS ---
Exam(s) MR LOWER JOINT RT WO EXAM: MR LOWER JOINT RT WO CLINICAL HISTORY: PAIN,internal derangement rt knee, m23.91. TECHNIQUE: Multiplanar multisequence MRI was performed. COMPARISON: CR XR KNEE RT 3V AP,LAT,ADARSH from 01/25/2023 FINDINGS: BONES: There is no fracture or contusion pattern. High signal in medial femoral condyle medial tibial plateau consistent with degenerative changes. Spicy leave the tibial spines of small adjacent cysts , also consistent with degenerative changes. JOINTS: A moderate-sized joint effusion is present. Articular cartilage: Patellofemoral joint: Thinning. No focal defect. Some periarticular spurring. Medial femoral tibial joint: Cartilage thinning. No focal defect. Lateral femoral tibial joint: Articular cartilage is unremarkable. TENDONS: Extensor mechanism: Unremarkable. Medial retinaculum: Unremarkable. Lateral retinaculum: Unremarkable. Popliteus: Unremarkable. MUSCLES: Unremarkable. MENISCI: The medial meniscus is diminutive. Findings could represent prior partial meniscectomy. Ab normal high signal seen in posterior horn suspicious for superimposed tear.. The lateral meniscus is unremarkable. SOFT TISSUES: Mild subcutaneous edema. LIGAMENTS: Anterior Cruciate: Markedly thinned. Some fibers appear intact. Posterior Cruciate: Edema. Some intact fibers. Findings could represent tear versus mucoid degenera tion. Medial Collateral:Unremarkable. Lateral Collateral: Unremarkable. IMPRESSION: Apparent prior partial medial meniscectomy. Superimposed tear in the posterior horn. Abnormal appearance of anterior and posterior cruciate ligaments which could represent partial tear v ersus mucoid degeneration. Degenerative changes with cartilage thinning of the medial femoral tibial and patellofemoral joints. DATA REPOSITORY:
== END 2023-02-18 01:57 ==
LOC: DI 01:37
PROVIDERS: PCP Nurse Practitioner Family; Visit Provider Student in an Organized Health Care Education/Training Program
DX: M23.251 Derangement of posterior horn of lateral meniscus due to old tear or injury, right knee (principal); S83.241S Other tear of medial meniscus, current injury, right knee, sequela; X58.XXXA Exposure to other specified factors, initial encounter
CPT/HCPCS: 73721

== ENCOUNTER 2023-04-04 04:19 | Outpatient (CLI) | payer OTHER, SELFPAY ==
[2023-04-04 15:31] LABS: Abs Immature Grans 0.06 10^3/uL (0.0-0.06); Absolute Basophil Count 0.05 10^3/uL (0.0-0.2); Absolute Eosinophil Count 0.25 10^3/uL (0.0-0.7); Absolute Lymphocyte Count 0.94 10^3/uL (1.2-3.4); Absolute Monocyte Count 0.77 10^3/uL (0.1-0.8); Absolute Neutrophil Count 6.12 10^3/uL (1.2-6.7); Basophils % 0.6; Eosinophils % 3.1; HCT 40.9 % (40.0-50.0); HGB 13.8 g/dL (13.5-17.5); Immature Grans % 0.7; Lymphocytes % 11.5; MCH 34.8 pg (27.0-33.0); MCHC 33.7 % (32.0-36.0); MCV 103 fL (80-95); MPV 9.4 fL (8.0-11.0); Monocytes % 9.4; Neutrophils % 74.7; Platelet Count 280 10^3/uL (130-400); RBC 3.97 10^6/uL (4.36-5.78); RDW 13.1 % (11.8-14.1); RDW-SD 49.6 fL; WBC 8.19 10^3/uL (4.4-10.8)
[2023-04-04 15:34] LABS: ESR 31 mm/hr (0-20)
[2023-04-04 15:38] LABS: Bilirubin Negative (Negative); Blood Moderate (Negative); Clarity Clear (Clear); Glucose Negative (Negative); Ketones Negative (Negative); Leukocyte Esterase Negative (Negative); Nitrite Negative (Negative); Specific Gravity 1.025 (1.005-1.025); Urobilinogen 0.2 mg/dL (Up to 0.2); pH 5.5 (5-8)
[2023-04-04 15:46] LABS: Bacteria Negative HPF (Negative); C & S Indicated? No; Casts Negative LPF (Negative); Crystals Negative HPF (Negative); Epithelial Cells Rare HPF (Negative); Mucus Moderate (Negative); WBC 0-2 HPF (0-5)
[2023-04-04 16:00] LABS: ALT 20 U/L (16-63); AST 23 U/L (15-37); Albumin 1.7 g/dL (3.4-5.0); Alkaline Phosphatase 53 U/L (46-116); Anion Gap 3.1 mmol/L (3-11); BUN 26 mg/dL (7-18); Bilirubin, Total 0.2 mg/dL (0.2-1.0); C-Reactive Protein 0.52 mg/dL (0.0-0.3); CO2 27.9 mmol/L (21.0-32.0); CREATININE 1.4 mg/dL (0.70-1.30); Calcium 7.9 mg/dL (8.5-10.1); Chloride 107 mmol/L (98-107); Estimated GFR 59.73 (mL/min/1.73m2); Glucose 84 mg/dL (74-106); Potassium 5.2 mmol/L (3.5-5.1); Sodium 138 mmol/L (136-145); Total Protein 6.1 g/dL (6.4-8.2)
[2023-04-04 16:04] LABS: COMMENT (LAB VIEW ONLY) 113.75 mg/dL; Prot/Crea Ur Ratio 3.48
[2023-04-04 16:39] LABS: PROTEIN > 1000.0 mg/dL
== END 2023-04-04 04:20 | disposition home or self-care (01) ==
LOC: LBO 04:19
PROVIDERS: PCP Nurse Practitioner Family; Visit Provider Internal Medicine Rheumatology
DX: M31.30 Wegener's granulomatosis without renal involvement (principal); R60.9 Edema, unspecified; Z79.899 Other long term (current) drug therapy
CPT/HCPCS: 36415; 80053; 85652; 81003; 81015; 82565; 84156; 85025; 86140

== ENCOUNTER 2023-05-01 03:44 | Outpatient (CLI) | payer OTHER, SELFPAY ==
[2023-05-01 11:01] LABS: Abs Immature Grans 0.16 10^3/uL (0.0-0.06); Absolute Basophil Count 0.05 10^3/uL (0.0-0.2); Absolute Monocyte Count 0.78 10^3/uL (0.1-0.8); Basophils % 0.4; Eosinophils % 0.9; HCT 41.5 % (40.0-50.0); HGB 14.2 g/dL (13.5-17.5); Immature Grans % 1.4; Lymphocytes % 10.3; MCH 35.9 pg (27.0-33.0); MCHC 34.2 % (32.0-36.0); MCV 105 fL (80-95); MPV 9.6 fL (8.0-11.0); Monocytes % 6.7; Neutrophils % 80.3; Platelet Count 148 10^3/uL (130-400); RBC 3.96 10^6/uL (4.36-5.78); RDW 13.7 % (11.8-14.1); RDW-SD 53.5 fL; WBC 11.62 10^3/uL (4.4-10.8)
[2023-05-01 11:04] LABS: Absolute Neutrophil Count 9.33 10^3/uL (1.2-6.7)
[2023-05-01 11:30] LABS: ALT 23 U/L (16-63); AST 23 U/L (15-37); Albumin 1.8 g/dL (3.4-5.0); Alkaline Phosphatase 46 U/L (46-116); Anion Gap 3.7 mmol/L (3-11); BUN 33 mg/dL (7-18); Bilirubin, Total 0.3 mg/dL (0.2-1.0); CO2 27.3 mmol/L (21.0-32.0); CREATININE 1.6 mg/dL (0.70-1.30); Chloride 108 mmol/L (98-107); Estimated GFR 50.88 (mL/min/1.73m2); Glucose 83 mg/dL (74-106); Potassium 5.3 mmol/L (3.5-5.1); Sodium 139 mmol/L (136-145); Total Protein 5.1 g/dL (6.4-8.2)
[2023-05-01 11:38] LABS: COMMENT (LAB VIEW ONLY) 194.44 mg/dL
[2023-05-01 11:54] LABS: PROTEIN > 1000.0 mg/dL
== END 2023-05-01 03:45 | disposition home or self-care (01) ==
LOC: LBO 03:44
PROVIDERS: PCP Nurse Practitioner Family; Visit Provider Internal Medicine Rheumatology
DX: M31.30 Wegener's granulomatosis without renal involvement (principal)
CPT/HCPCS: 36415; 80053; 82565; 84156; 85025

== ENCOUNTER 2023-05-05 10:04 | Inpatient (IN) | payer OTHER, SELFPAY ==
[2023-05-05] VITALS (22 sets, daily range): BP systolic 156–197; BP diastolic 94–121; PULSE 68–125; RESP 17–23; TEMP 36.6; O2SAT 86–100
--- NOTE | 2023-05-05 10:00 | RT.EKG_ITS ---
APPROVED REPORT Exam: Resting ECG Reason for Exam: chest pain Patient Location: E HR:102 bpm ECG Measurements Heart Rate 102 AXIS [place] 170 P 37 QRSd 117 QRS -60 QT 334 T 72 QTc 436 Conclusion Sinus tachycardia...rate> 99 Left atrial enlargement...P, P'>60mS, <-0.15mV V1 Incomplete right bundle branch block...QRSd >112, terminal axis(90,270) Left ventricular hypertrophy...multiple LVH criteria ST elevation secondary to LVH...Multiple VCG criteria Sinus tachycardia at a rate of 102 with incomplete right bundle branch block pattern with left axis d eviation and ST segment elevation in lead III. No prior for comparison. No ST segment depressions. ST segment elevation in aVR. No prior for comparison. QTc within normal limits. KY within normal limits.
--- NOTE | 2023-05-05 10:09 | ED.GENADUL_ITS ---
Discharge Plan Disposition Patient Disposition: Admit to [facility] Discharge Details Clinical Impression: Acute respiratory failure with hypoxia and hypercarbia, Hyperkalemia, Pulmonary embolism, bilateral, Pleural effusion on left Admit Date/Time: 05/05/23 13:39 Admit Provider: Mai Pond Attending Provider: Mai Pond Primary Care Provider: Sukhdev Guadalupe ED Provider: Gonzales Mitchell Discharge Data Discharge Date/Time-TO BE ENTERED AT DEPARTURE: 05/05/23 14:14 Medical Decision Making This is an obese hypoxic and hypertensive 52-year-old male with granulomatosis with polyangiitis now with acute hypoxic respiratory failure and chest pain. His presentation is concerning for PE. He does have ST segment elevation in lead III but sub millimeter and not in two contiguous leads so I do not feel that he is a TNK candidate. We will obtain a troponin to assess for ACS. He does have lower extremity pitting edema and 30 pound unintentional weight gain over the past 6 weeks on steroids. He has no signs of heart failure on ultrasound however and he appears to have a normal ejection fraction. He has had no fevers to suggest pneumonia. No vomiting to suggest esophageal rupture. No tearing quality to his pain to suggest aortic dissection. Will obtain a venous blood gas to assess for hypercarbia. It is certainly possible that given his obesity he could have an element of pulmonary hypertension. On apical four chamber view it did appear that his LV was approximately equal to his RV. He has not taken his home antihypertensives yet today. Will hold these until his PE study has been completed. Anticipate that he will require hospitalization given his respiratory failure. He has no prolonged expiratory phase nor is he a smoker to suggest exacerbation of reactive airway disease. 11:11 AM Venous blood gas with very mild hypercarbia. No acidemia. CBC with no anemia thrombocytopenia nor leukocytosis. 11:26 AM CBC with mild hyperkalemia with a serum potassium of 5.3. No MICAH but CKD. No anion gap. Normal bicarbonate. Negative troponin. Lipase within normal limits. Repeat ECG showing normal sinus rhythm at a rate of 91. Normal axis. No ST segment elevations. ST segment elevation in aVR improved. Appears improved compared to prior. Patient reports no change in his chest pain. Will provide a 500 cc fluid bolus given hyperkalemia. Patient is on 3 L of oxygen via nasal cannula. 12:10 PM I received a call from virtual radiology as patient had bilateral PEs. No reported signs of right heart strain. Will initiate heparin drip.I also added on proBNP. 1:05 PM proBNP reassuring. 1:33 PM I spoke to Dr. Sams from cards [place] [facility] who advised local hospitalization. She advised re-consultation if hemodynamics changes. She felt that patient would not meet criteria for thrombectomy. She advised bilateral lower extremity duplexes and echocardiogram. If the patient had significant clot burden on duplex studies or any signs of RV dysfunction on echocardiogram she advised reconsult ation. Otherwise she advised local hospitalization. I will order studies and reach out to hospitalist team. Patient is on losartan and this certainly could be the cause of his mild hyperkalemia. This is not likely a good medication for the patient moving forward as he has been hyperkalemic in the past. I spoke with Dr. Pond who graciously agreed to accept the patient for hospitalization. We will update patient and family. Chronic conditions affecting the care of the patient: Granulomatosis with polyangiitis History obtained from an outside historian: Patient's External record review: No records in [facility] E[place]. Multiple [facility] records. Diagnostic interpretations performed by me: Per my independent interpretation EKG shows: Sinus tachycardia at a rate of 102 with incomplete right bundle branch block pattern with left axis deviation and ST segment elevation in lead III. No prior for comparison. No ST segment depressions. ST segment elevation in aVR. No prior for comparison. QTc within normal limits. [place] within normal limits. Medications: Heparin Social determinants of health affecting disposition: N/A Management discussed with: [facility] ervin & Dr. Pond Treatment/interventions considered: transfer to tertiary but deferred based on recommendation from [facility] Response to therapies provided: SOB improved on O2 HPI General Date/Time Provider Initiated Documentation: 05/05/23 10:09 . HPI Narrative: This is a 52-year-old male with a history of granulomatosis with polyangiitis on outpatient steroid taper followed by rheumatology now in the emergency department setting of chest tightness and sudden onset shortness of breath that began approximately 45 minutes ago. Patient had a room air oxygen saturation of 86% on arrival. He reports that his symptoms began when sitting in a table. He had a central tightness in his chest that does not radiate. He had no prior history of similar symptoms. He reported that staying still improves his symptoms and moving worsens his symptoms. He has a history of hypertension and has not yet taken his home antihypertensive medication. He has no history of diabetes hyperlipidemia nor family history of premature coronary artery disease. He has never had a PE nor a DVT. He has had no nausea nor vomiting. No fevers chills dysuria nor frequency. Related Data Home Medications Medication Instructions Recorded Confirmed azathioprine 50 mg tablet 100 mg PO DAILY 06/08/21 05/05/23 cholecalciferol (vitamin D3) 25 25 mcg PO DAILY 06/08/21 05/05/23 mcg (1,000 unit) capsule cyanocobalamin (vitamin B-12) 5,000 mcg PO .weekly 06/08/21 05/05/23 5,000 mcg capsule folic acid 1 mg tablet 1 mg PO DAILY 06/08/21 05/05/23 losartan 100 mg tablet 100 mg PO HS 06/08/21 05/05/23 ondansetron HCl 4 mg tablet 4 mg PO Q8H PRN nausea and 11/02/22 03/29/23 vomiting #60 tabs permethrin 5 % topical cream 1 applic topical .Q 1 wk 2 doses 11/19/22 03/29/23 #60 grams methylprednisolone 4 mg tablet 24 mg DAILY 05/05/23 05/05/23 Previous Rx's Medication Instructions Recorded ondansetron HCl 4 mg tablet 4 mg PO Q8H PRN nausea and 11/02/22 vomiting #60 tabs permethrin 5 % topical cream 1 applic topical .Q 1 wk 2 doses 11/19/22 #60 grams Allergies Allergy/AdvReac Type Severity Reaction Status Date / Time codeine AdvReac Intermediate vomiting Verified 05/05/23 10:16 PFSH All Active Problems (Updated 05/06/23 @ 00:11 by BEVERLY YAÑEZ) MICAH (acute kidney injury) (Acute) Elevated troponin (Acute) Acute respiratory failure with hypoxia and hypercarbia (Acute) Hyperkalemia (Chronic) Pulmonary embolism, bilateral (Acute) Pleural effusion on left (Acute) Tear of medial meniscus of right knee, current (Acute) Arthritis of right knee (Acute) Internal derangement of right knee (Acute) Fatigue (Acute) Granulomatosis with polyangiitis (Chronic) Right knee pain (Acute) Essential (primary) hypertension (Acute) Tubular adenoma of colon (Acute) Surgical History History of appendectomy History of colonoscopy (~02/2022) Family History Mother No problems noted. Father No problems noted. Social History Smoking/Tobacco Use Status: Never Second Hand Exposure: Yes Smoking risk assessment performed?: Yes Alcohol Intake: never Drug use: Never Substance use type: does not use Caregiver/Support person: No Household members: significant other Housing: house Communication Needs: None Do you need help understanding health information?: Never Sexually active: No Do you think of yourself as: straight/heterosexual Current gender identity: male What is your relationship status?: How often do you talk on the phone with friends or family?: never How often do you get together with friends or relatives?: three or more times per week How often do you attend latter-day or temple services?: decline to answer Do you belong to any clubs or organized social groups?: no Panel score (0-1 are the most socially isolated patients): 2 What type of physical activity do you participate in: none Chikis/Church: None Special chikis needs: No Seatbelt use: always Drive intox or ride w/intox trolley coach driver: No Do you feel safe at home: Yes Do you feel safe in your relationship?: Yes Exam Narrative Exam Narrative: General: Well-appearing in no acute distress speaking in complete sentences. Head: Normocephalic, atraumatic. Eye: Extraocular eye movements intact. No conjunctival injection. No scleral icterus. Ear, nose, mouth, throat: Grossly normal inspection. Normal voice, handling secretions normally. Neck: Trachea midline. Cardiovascular: Well-perfused distal extremities. Regular rate and rhythm. 1+ pitting bilateral lower extremity edema. Respiratory: Nonlabored respiration. Clear lungs bilaterally. No wheezes. No crackles. Gastrointestinal: Nondistended abdomen. Soft nontender abdomen. Musculoskeletal: No edema. Moving all 4 extremities spontaneously. Bilateral calves nontender. Skin: Normal for age and race, grossly normal temperature and turgor. No acute rash. Neurologic: Alert and appropriate, no apparent acute deficits. Psychiatric: Mood and manner are appropriate. Grooming and personal hygiene are appropriate. Critical Care Time Critical Care Time Critical Care Time: Yes Total Critical Care Time: 45 Attestation: Acute respiratory failure hypoxia POCUS Exam (ED) Limited Cardiac Exam DATE OF EXAM: 05/05/23 TIME OF EXAM: 10:49 REASON FOR EXAM: Dyspnea VISUALIZED STRUCTURES: Four Chambers, LVOT and Interventricular septum VIEW OBTAINED: Apical 4-Chamber, Parasternal long-axis and Subxiphoid PERTINENT FINDINGS/IMPRESSION: Other (RV approximately equal to LV. Aortic outflow track less than 4 cm. Good squeeze. No significant pericardial effu karla. No significant B-lines bilaterally.); No LV dysfunction and No pericardial effusion DIFFERENTIAL DIAGNOSES: RV approximately equal to LV. Aortic outflow track less than 4 cm. Good squeeze. No significant pericardial effusion. No significant B-lines bilaterally. Exam complete
--- NOTE | 2023-05-05 10:30 | DI.CT_ITS ---
Exam(s) CT CHEST PE CTA EXAM: CT CHEST PE CTA CLINICAL HISTORY: Shortness of breath. TECHNIQUE: Imaging Protocol: CT angiography of the chest was performed using pulmonary embolus nitza col. Multi planar reconstructions were performed. CONTRAST MATERIAL: Intravenous: Omnipaque 350 Contrast volume: 100 cc COMPARISON: No exams were available for comparison FINDINGS: CHEST: PULMONARY ARTERIES: There are prominent bilateral pulmonary emboli which are evident in the main pulm onary arteries and extending into the lower lobe arteries bilaterally. On the right side there is al so embolus extension into an upper lobe vessel. LUNGS: There are no infiltrates nor evidence of pulmonary infarction.. There is a small left pleural effusion. No right pleural effusion. No significant focal findings in the trachea and mainstem bron chi. MEDIASTINUM: There is no hilar nor mediastinal adenopathy. Visualized thyroid unremarkable. CARDIAC: Heart size is upper normal. There is no pericardial effusion.Caliber of the thoracic aorta is within normal limits. No dissection. There is no significant shift of the interventricular septum . Also no reflux of contrast into the intrahepatic IVC. PARTIALLY VISUALIZED UPPERMOST ABDOMEN: There is perihepatic ascites evident. Hypodensities in the l iver noted which have the appearance of probable cysts. Spleen size normal. Adrenals not completely included in the field of view. OSSEOUS: No significant osseous lesions.. IMPRESSION: 1. Extensive bilateral pulmonary emboli as described above, involving the main pulmonary arteries lalit aterally and extending into the lower lobe arteries bilaterally. Also mild involvement of right uppe r lobe pulmonary artery seen..Small left pleural effusion. No obvious pulmonary infarct evident at t his time. 2. No obvious right heart strain evident at this time. 3. Small amount of ascites is evident in the upper abdomen. Other findings as above. First read by [facility]. RADIATION DOSE DELIVERED: 589.41mGy.cm Total DLP DATA REPOSITORY: All CT scans at this facility are submitted to the National Radiology Data Registry (NRDR) Dose Index Registry (DIR) with the [employer] (A[employer]). RADIATION OPTIMIZATION: All CT scans at this facility use at least one of these dose optimization te chniques: automated exposure control; mA and/or kV adjustment per patient size (includes targeted exa ms where dose is matched to clinical indication); or iterative reconstruction.
--- NOTE | 2023-05-05 11:00 | RT.EKG_ITS ---
APPROVED REPORT Exam: Resting ECG Reason for Exam: Chest pain Patient Location: E HR:91 bpm ECG Measurements Heart Rate 91 AXIS LA 185 P 30 QRSd 104 QRS -57 QT 338 T 38 QTc 416 Conclusion Sinus rhythm...normal P axis, V-rate 60- 99 Probable left atrial enlargement...P >50mS, <-0.10mV V1 Left anterior fascicular block...axis(240,-40), init forces inf Left ventricular hypertrophy...multiple LVH criteria ST elevation, consider lateral injury...ST >0.10mV, I aVL V5 V6 Repeat ECG showing normal sinus rhythm at a rate of 91. Normal axis. No ST segment elevations. ST segment elevation in aVR improved. Appears improved compared to prior.
[2023-05-05 11:03] LABS: BE (Venous) 1 mmol/L (-2-3); HCO3 (Venous) 27 mmol/L (23-28); O2 Sat (Venous) 46 %; TCO2 (Venous) 25 mmol/L (24-29); pCO2 (Venous) 54 mmHg (41-51); pH (Venous) 7.31 (7.31-7.41); pO2 (Venous) 27 mmHg
[2023-05-05 11:05] LABS: Abs Immature Grans 0.17 10^3/uL (0.0-0.06); Absolute Basophil Count 0.05 10^3/uL (0.0-0.2); Absolute Eosinophil Count 0.16 10^3/uL (0.0-0.7); Absolute Lymphocyte Count 1.05 10^3/uL (1.2-3.4); Absolute Monocyte Count 0.68 10^3/uL (0.1-0.8); Absolute Neutrophil Count 8.18 10^3/uL (1.2-6.7); Basophils % 0.5; Eosinophils % 1.6; HCT 44.6 % (40.0-50.0); HGB 14.7 g/dL (13.5-17.5); Immature Grans % 1.7; Lymphocytes % 10.2; MCH 34.9 pg (27.0-33.0); MCV 106 fL (80-95); MPV 9.5 fL (8.0-11.0); Monocytes % 6.6; Neutrophils % 79.4; Platelet Count 140 10^3/uL (130-400); RBC 4.21 10^6/uL (4.36-5.78); RDW 13.8 % (11.8-14.1); RDW-SD 54.2 fL; WBC 10.29 10^3/uL (4.4-10.8)
[2023-05-05 11:22] LABS: ALT 22 U/L (16-63); AST 23 U/L (15-37); Albumin 1.7 g/dL (3.4-5.0); Alkaline Phosphatase 54 U/L (46-116); Anion Gap 5.1 mmol/L (3-11); BUN 30 mg/dL (7-18); Bilirubin, Total 0.3 mg/dL (0.2-1.0); CO2 27.9 mmol/L (21.0-32.0); CREATININE 1.6 mg/dL (0.70-1.30); Calcium 8.5 mg/dL (8.5-10.1); Chloride 108 mmol/L (98-107); Estimated GFR 50.88 (mL/min/1.73m2); Glucose 105 mg/dL (74-106); Lipase 53 U/L (16-77); Potassium 5.3 mmol/L (3.5-5.1); Sodium 141 mmol/L (136-145); Total Protein 5.5 g/dL (6.4-8.2); Troponin I < 50 ng/L (<or=60)
[2023-05-05] MEDS: Normal Saline - Diluent 50 ML VIAL IJ (11:32)
[2023-05-05] MEDS: Omnipaque 350 MG/ML 100 ML BTL IJ (11:34)
[2023-05-05] MEDS: Normal Saline Flush 10 ML SYR IVP (11:37)
[2023-05-05 12:04] LABS: Salicylate < 2.8 mg/dL (<2.8)
--- NOTE | 2023-05-05 12:12 | DI.VRAD_ITS ---
PROCEDURE INFORMATION: Exam: CTA Chest With Contrast Exam date and time: 05/05/2023 11:38 AM Age: 52 years old Clinical indication: Shortness of breath TECHNIQUE: Imaging protocol: Computed tomographic angiography of the chest with contrast. Exam focused on the arteries. 3D rendering (Not supervised by radiologist): MIP and/or 3D reconstructed images were created by the technologist. Radiation optimization: All CT scans at this facility use at least one of these dose optimization techniques: automated exposure control; mA and/or kV adjustment per patient size (includes targeted exams where dose is matched to clinical indication); or iterative reconstruction. Contrast material: OMNIPAQUE 350; Contrast volume: 100 ml; Contrast route: INTRAVENOUS (IV); COMPARISON: No relevant prior studies available. FINDINGS: Pulmonary arteries: Bilateral pulmonary emboli in the main pulmonary arteries extending into the lower lobar arterial branches. Aorta: Unremarkable. No aortic aneurysm. No aortic dissection. Lungs: Unremarkable. No consolidation. No masses. Pleural spaces: Small left pleural effusion Heart: No evidence of right heart strain. The RV LV ratio is 0.9. Lymph nodes: Unremarkable. No enlarged lymph nodes. Liver: Fatty infiltration of the liver with indeterminate cystic lesions Bones/joints: Unremarkable. No acute fracture. Soft tissues: Unremarkable. IMPRESSION: 1. Large pulmonary emboli in the main pulmonary arteries extending into the lower lobar arterial branch. Small left pleural effusion. 2. Fatty infiltration liver with indeterminate cystic lesions THIS REPORT CONTAINS FINDINGS THAT MAY BE CRITICAL TO PATIENT CARE. The findings were verbally communicated via telephone conference with ERIN MCKINNEY at 12:10 PM EDT on 05/05/2023. The findings were acknowledged and understood. Dictated and Authenticated by: Abigail Brock MD. Ordering:JANIE Rolon MD
[2023-05-05] MEDS: Normal Saline 500 ML IV (12:22)
[2023-05-05] MEDS: Heparin in 0.45% NaCl 25,000 UNIT/250 ML BAG 18 UNIT IV (12:31)
[2023-05-05 12:51] LABS: NT-proBNP 281 pg/mL (<300)
[2023-05-05 12:56] LABS: INR 0.9 (0.9-1.1); PTT Activated 24.3 sec (21.5-31.9); Prothrombin Time 8.9 sec (9.3-11.0)
[2023-05-05 14:07] LABS: Source Nasal/Nares
[2023-05-05 14:15] LABS: Troponin I 258 ng/L (<or=60)
[2023-05-05 14:46] LABS: COVID-19 PCR Negative (Negative)
--- NOTE | 2023-05-05 15:16 | W.PM.HP.N ---
Date of service: 05/05/23 Time of Service: 15:16 Assessment and Plan Assessment and plan (1) Pulmonary embolism, bilateral: Status: Acute Assessment and plan: With elevated troponin and hypoxia, suggesting R heart strain. The patient is heparinized and was accepted at [facility] for possible catheter-directed thrombolysis vs thrombectomy, pending his echocardiogram results. Continue heparin gtt. Will need dopplers of BLEs as the BLE edema, I suspect, represents DVTs. (2) Acute respiratory failure with hypoxia and hypercarbia: Status: Acute Assessment and plan: Due to above. As above (3) Elevated troponin: Status: Acute Assessment and plan: As above (4) Hyperkalemia: Status: Chronic Assessment and plan: Probably due to losartan use. I have discontinued losartan and ordered gentle IVF. Monitor. (5) MICAH (acute kidney injury): Status: Acute Assessment and plan: Similarly, in setting of losartan use; however, could also be due to pulmonary hypertension in setting of acute PE. Hold losartan. Gentle IVF. Monitor Cr. (6) Essential (primary) hypertension: Status: Acute Assessment and plan: Acute on chronic. I will avoid giving antihypertensives at this time as the BP is 156/92, and the patient is stable. I would also like to preserve BP in case the patient does develop RV failure with hypotension. (7) Granulomatosis with polyangiitis: Status: Chronic Assessment and plan: Likely the underlying reason for his hypercoagulable state. Continue steroids and azathioprine. Follows w/ rheumotology at [facility]. Qualifiers: Granulomatosis renal involvement: without renal involvement Qualified Code(s): M31.30 - Geri's granulomatosis without renal involvement (8) Discharge planning issues: Status: Acute Assessment and plan: Full code The patient is being gransferred to [facility] due to new lab finding of elevated troponin. This note also acts as his transfer summary given his unexpectedly short stay on the hospitalist service at our facility. Total Critical Care Time 45 minutes. History of Present Illness History of Present Illness Chief Complaint: Chest pain, shortness of breath Narrative: Mr Carr is a 52 year old male with PMHx of HTN, Irrigon's granulomatosis with polyangitis, on azathioprine, who was seen by PCP's office on 03/29/23 for bilateral ankle swelling, prior borderline hyperkalemia while on losartan, obesity with BMI of 36.9 kg/m2, who presented to [facility] ED today c/o chest tightness and shortness of breath which started suddenly 45 minutes prior to arrival to the ER. The patient states that he was just sitting there when the pain started. He states that his LE edema had been going on for about a month. On arrival to the ER, he was saturating 88% on RA and required 3L of O2 to saturate in the 90s. The patient's CTA chest revealed large pulmonary emboli in the main pulmonary arteries extending into the lower lobar arterial branch and a small left pleural effusion. There was no evidence of R heart strain by CTA. His initial troponin was negative, pro-BNP was 281. He was heparinized and a PE team consultation with [facility] was sought. They recommended that the patient stay at our facility and get a transthoracic echo and venous dopplers BLEs. He was not considered a candidate for thrombectomy. His repeat troponin came back at 258. I had reached out to the [facility] PE team and spoke with cardiology, who now feel that the patient is a candidate for either catheter-directed thrombolysis or thrombectomy, depending on the results of the echocardiogram, and that he should be transferred to [facility]. He was accepted the patient in transfer under the care of Dr Perez. The patient is agreeable to transfer. His last BP is 156/92 and his HR is 92 with O2 sat of 98% on 2L of O2. Review of Systems All systems reviewed & are unremarkable except as noted in HPI and below PFSH All Active Problems (Updated 05/05/23 @ 17:00 by Mai Pond MD) Discharge planning issues (Acute) MICAH (acute kidney injury) (Acute) Elevated troponin (Acute) Acute respiratory failure with hypoxia and hypercarbia (Acute) Hyperkalemia (Chronic) Pulmonary embolism, bilateral (Acute) Pleural effusion on left (Acute) Tear of medial meniscus of right knee, current (Acute) Arthritis of right knee (Acute) Internal derangement of right knee (Acute) Fatigue (Acute) Granulomatosis with polyangiitis (Chronic) Right knee pain (Acute) Essential (primary) hypertension (Acute) Tubular adenoma of colon (Acute) Surgical History History of appendectomy History of colonoscopy (~02/2022) Family History Mother No problems noted. Father No problems noted. Social History Smoking/Tobacco Use Status: Never Second Hand Exposure: Yes Smoking risk assessment performed?: Yes Alcohol Intake: never Drug use: Never Substance use type: does not use Caregiver/Support person: No Household members: significant other Housing: house Communication Needs: None Do you need help understanding health information?: Never Sexually active: No Do you think of yourself as: straight/heterosexual Current gender identity: male What is your relationship status?: How often do you talk on the phone with friends or family?: never How often do you get together with friends or relatives?: three or more times per week How often do you attend restorationist or sabianist services?: decline to answer Do you belong to any clubs or organized social groups?: no Panel score (0-1 are the most socially isolated patients): 2 What type of physical activity do you participate in: none Chikis/Adventism: None Special chikis needs: No Seatbelt use: always Drive intox or ride w/intox taxicab driver: No Do you feel safe at home: Yes Do you feel safe in your relationship?: Yes Meds Allergies and Home Medications Allergies Allergy/AdvReac Type Severity Reaction Status Date / Time codeine AdvReac Intermediate vomiting Verified 05/05/23 10:16 Home Medications Medication Instructions Recorded Confirmed Type azathioprine 50 mg tablet 100 mg PO DAILY 06/08/21 05/05/23 History cholecalciferol (vitamin D3) 25 25 mcg PO DAILY 06/08/21 05/05/23 History mcg (1,000 unit) capsule cyanocobalamin (vitamin B-12) 5,000 mcg PO .weekly 06/08/21 05/05/23 History 5,000 mcg capsule folic acid 1 mg tablet 1 mg PO DAILY 06/08/21 05/05/23 History losartan 100 mg tablet 100 mg PO HS 06/08/21 05/05/23 History ondansetron HCl 4 mg tablet 4 mg PO Q8H PRN nausea and 11/02/22 03/29/23 Rx vomiting #60 tabs permethrin 5 % topical cream 1 applic topical .Q 1 wk 2 doses 11/19/22 03/29/23 Rx #60 grams methylprednisolone 4 mg tablet 24 mg DAILY 05/05/23 05/05/23 History Exam Narrative Exam Narrative: General: Pleasant middle-aged male who is A&Ox3, NAD, laying comfortably in bed on 2 L of O2 by NC; no dyspnea, tachypnea, or cyanosis Neurological: A&Ox3, no focal deficits Psychiatric: Appropriate speech pattern/content Skin: Visible skin intact HEENT: Atraumatic, normocephalic, EOMI, MMM, clear oropharynx, no submandibular or cervical lymphadenopathy, no goiter or JVD Cardiovascular: RRR, no m/r/g Lungs: Diminished breath sounds B Gastrointestinal: soft, nontender, nondistended Genitourinary: deferred Extremities: 3+ edema BLEs, symmetric Results Imaging Additional studies: CTA chest: 1. ? Large pulmonary emboli in the main pulmonary arteries extending into the lower lobar arterial branch. Small left pleural effusion. 2. ? Fatty infiltration liver with indeterminate cystic lesions EKG #1: ST, HR 102, LVH, Incomplete RBBB EKG #2: SR, HR 91, unchanged Labs 05/05/23 10:38 05/05/23 10:38 Labs: Laboratory Results - last 24 hr 05/05/23 05/05/23 05/05/23 10:35 10:38 10:38 WBC 10.29 RBC 4.21 L Hgb 14.7 Hct 44.6 MCV 106 H MCH 34.9 H MCHC 33.0 RDW 13.8 Plt Count 140 MPV 9.5 Immature Gran % 1.7 Neutrophils % 79.4 Lymphocytes % 10.2 Monocytes % 6.6 Eosinophils % 1.6 Basophils % 0.5 Nucleated RBC % 0.0 Absolute Neutrophils 8.18 H Absolute Lymphocytes 1.05 L Absolute Monocytes 0.68 Absolute Eosinophils 0.16 Absolute Basophils 0.05 PT 8.9 L INR 0.9 APTT 24.3 VBG pH VBG pCO2 VBG pO2 VBG HCO3 VBG Total CO2 VBG O2 Saturation VBG Base Excess Sodium 141 Potassium 5.3 H Chloride 108 H Carbon Dioxide 27.9 Anion Gap 5.1 BUN 30 H Creatinine 1.6 H Est GFR (CKD-EPI 2020) 50.88 Glucose 105 Calcium 8.5 Total Bilirubin 0.3 AST 23 ALT 22 Alkaline Phosphatase 54 Troponin I < 50 NT-Pro-B Natriuret Pep Total Protein 5.5 L Albumin 1.7 L Lipase 53 Salicylates COVID-19 Source SARS-CoV-2 (PCR) 05/05/23 05/05/23 05/05/23 10:38 10:38 11:20 WBC RBC Hgb Hct MCV MCH MCHC RDW Plt Count MPV Immature Gran % Neutrophils % Lymphocytes % Monocytes % Eosinophils % Basophils % Nucleated RBC % Absolute Neutrophils Absolute Lymphocytes Absolute Monocytes Absolute Eosinophils Absolute Basophils PT INR APTT VBG pH 7.31 VBG pCO2 54 H VBG pO2 27 VBG HCO3 27 VBG Total CO2 25 VBG O2 Saturation 46 VBG Base Excess 1 Sodium Potassium Chloride Carbon Dioxide Anion Gap BUN Creatinine Est GFR (CKD-EPI 2020) Glucose Calcium Total Bilirubin AST ALT Alkaline Phosphatase Troponin I NT-Pro-B Natriuret Pep 281 Total Protein Albumin Lipase Salicylates < 2.8 COVID-19 Source SARS-CoV-2 (PCR) 05/05/23 05/05/23 13:40 13:50 WBC RBC Hgb Hct MCV MCH MCHC RDW Plt Count MPV Immature Gran % Neutrophils % Lymphocytes % Monocytes % Eosinophils % Basophils % Nucleated RBC % Absolute Neutrophils Absolute Lymphocytes Absolute Monocytes Absolute Eosinophils Absolute Basophils PT INR APTT VBG pH VBG pCO2 VBG pO2 VBG HCO3 VBG Total CO2 VBG O2 Saturation VBG Base Excess Sodium Potassium Chloride Carbon Dioxide Anion Gap BUN Creatinine Est GFR (CKD-EPI 2020) Glucose Calcium Total Bilirubin AST ALT Alkaline Phosphatase Troponin I 258 H* NT-Pro-B Natriuret Pep Total Protein Albumin Lipase Salicylates COVID-19 Source Nasal/Nares SARS-CoV-2 (PCR) Negative Last Vital Signs Temp 36.6 C 05/05/23 10:44 Pulse 99 H 05/05/23 14:28 Resp 21 05/05/23 14:01 BP 171/109 H 05/05/23 14:01 Pulse Ox 97 05/05/23 14:01 Time Spent Time spent with Patient: 40-54 minutes Time was spent: preparing to see the patient(eg.review tests), obtaining and/or reviewing separately otained hiistory, ordering medications,tests, procedures, referring, communicating with other health career based intervention coordinator, indepentently interpreting results, counseling the patient and care coordination
--- NOTE | 2023-05-05 15:30 | RT.EKG_ITS ---
APPROVED REPORT Exam: Resting ECG Reason for Exam: elevated troponin Patient Location: I HR:70 bpm ECG Measurements Heart Rate 70 AXIS OR 175 P -2 QRSd 104 QRS -50 QT 351 T 23 QTc 379 Conclusion Sinus rhythm...normal P axis, V-rate 50- 99 Left anterior fascicular block...axis(240,-40), init forces inf Abnormal R-wave progression, late transition...QRS area<0 in V5/V6 Left ventricular hypertrophy...multiple voltage criteria ST elev, probable normal early repol pattern...ST elevation, age<55
[2023-05-05 17:29] LABS: Troponin I 312 ng/L (<or=60)
--- NOTE | 2023-05-05 18:22 | NUR.NOTE ---
Called & gave report to Keyona AGUILA At [phone]. All questions &/or concerns were addressed. No ETA for potato picker was given due to no ride has been set up as of yet. Nursing Note:
[2023-05-05 18:57] LABS: PTT Activated 102.5 sec (21.5-31.9)
[2023-05-05] MEDS: Heparin in 0.45% NaCl 25,000 UNIT/250 ML BAG 16 UNIT IV ×2 (19:14→21:01)
--- NOTE | 2023-05-05 20:47 | NUR.NOTE ---
Addendum entered by Jo-Ann Green LPN 05/05/23 20:48: This was done per transporting nurse's request. Original Note: Nursing Note: Pt transfering to [facility] with Heparin drip. Gave MINGO Randhawa one bag of heparin for transport as his current bag is near empty.
--- NOTE | 2023-05-05 21:42 | NUR.NOTE ---
Nursing Note: [facility] received pt at 2106. MINGO Randhawa accompanied with transport to manage Heparin drip.
--- NOTE | 2023-05-06 11:19 | NUR.NOTE ---
JOSE called asking about orders by Dr Mitchell, for bilat US leg and echo. Accessed chart and pt was admitted, JOSE notified.Nursing Note:
== END 2023-05-05 21:07 | disposition short-term general hospital (02) | DRG 175 ==
LOC: ER 13:39 → MS 14:17
PROVIDERS: Admitting Provider Internal Medicine; Emergency Provider Emergency Medicine; PCP Nurse Practitioner Family; Visit Provider Internal Medicine
DX: I26.99 Other pulmonary embolism without acute cor pulmonale (principal); J96.01 Acute respiratory failure with hypoxia; J96.02 Acute respiratory failure with hypercapnia; N17.9 Acute kidney failure, unspecified; M31.30 Wegener's granulomatosis without renal involvement; J90 Pleural effusion, not elsewhere classified; R74.8 Abnormal levels of other serum enzymes; E87.5 Hyperkalemia; I10 Essential (primary) hypertension; R94.31 Abnormal electrocardiogram [ECG] [EKG]; I45.10 Unspecified right bundle-branch block
CPT/HCPCS: 36415; 71275; 80053; 82805; 83690; 87635; 93005; 93308; 96365; 99291; 80329; 83880; 84484; 85025; 85610; 85730; 93010; J3490

== ENCOUNTER 2023-05-28 04:50 | Outpatient (CLI) | payer OTHER, SELFPAY ==
[2023-05-28 11:10] LABS: ALT 30 U/L (16-63); AST 26 U/L (15-37); Albumin 1.6 g/dL (3.4-5.0); Alkaline Phosphatase 57 U/L (46-116); Anion Gap 6.8 mmol/L (3-11); BUN 39 mg/dL (7-18); Bilirubin, Total 0.3 mg/dL (0.2-1.0); CO2 25.2 mmol/L (21.0-32.0); CREATININE 1.5 mg/dL (0.70-1.30); Calcium 8.7 mg/dL (8.5-10.1); Chloride 103 mmol/L (98-107); Estimated GFR 54.64 (mL/min/1.73m2); Glucose 102 mg/dL (74-106); Sodium 135 mmol/L (136-145); Total Protein 5.1 g/dL (6.4-8.2)
== END 2023-05-28 04:51 | disposition home or self-care (01) ==
LOC: LBO 04:50
PROVIDERS: PCP Nurse Practitioner Family; Visit Provider Nurse Practitioner Family
DX: N17.9 Acute kidney failure, unspecified (principal); I10 Essential (primary) hypertension; R53.83 Other fatigue
CPT/HCPCS: 36415; 80053

== ENCOUNTER 2023-06-27 03:43 | Outpatient (CLI) | payer OTHER, SELFPAY ==
[2023-06-27 15:42] LABS: ALT 34 U/L (16-63); AST 24 U/L (15-37); Albumin 2.3 g/dL (3.4-5.0); Alkaline Phosphatase 47 U/L (46-116); Anion Gap 10.7 mmol/L (3-11); BUN 26 mg/dL (7-18); Bilirubin, Total 0.3 mg/dL (0.2-1.0); CO2 23.3 mmol/L (21.0-32.0); CREATININE 1.6 mg/dL (0.70-1.30); Calcium 8.6 mg/dL (8.5-10.1); Chloride 103 mmol/L (98-107); Estimated GFR 50.57 (mL/min/1.73m2); Glucose 124 mg/dL (74-106); Potassium 4.3 mmol/L (3.5-5.1); Sodium 137 mmol/L (136-145); Total Protein 5.9 g/dL (6.4-8.2)
== END 2023-06-27 03:44 | disposition home or self-care (01) ==
LOC: LBO 03:43
PROVIDERS: PCP Nurse Practitioner Family; Visit Provider Nurse Practitioner Family
DX: N17.9 Acute kidney failure, unspecified (principal); I10 Essential (primary) hypertension; R53.83 Other fatigue
CPT/HCPCS: 36415; 80053

== ENCOUNTER 2023-09-19 02:15 | Outpatient (CLI) | payer OTHER, SELFPAY ==
[2023-09-19 15:25] LABS: ESR 6 mm/hr (0-20)
[2023-09-19 16:32] LABS: Anion Gap 6.8 mmol/L (3-11); BUN 28 mg/dL (7-18); C-Reactive Protein 0.35 mg/dL (0.0-0.3); CO2 31.2 mmol/L (21.0-32.0); CREATININE 1.1 mg/dL (0.70-1.30); Calcium 10.2 mg/dL (8.5-10.1); Chloride 105 mmol/L (98-107); Estimated GFR 79.28 (mL/min/1.73m2); Glucose 87 mg/dL (74-106); Potassium 4.2 mmol/L (3.5-5.1); Sodium 143 mmol/L (136-145)
== END 2023-09-19 02:16 | disposition home or self-care (01) ==
LOC: LBO 02:15
PROVIDERS: PCP Nurse Practitioner Family; Visit Provider Internal Medicine Nephrology
DX: I77.82 Antineutrophilic cytoplasmic antibody [ANCA] vasculitis (principal)
CPT/HCPCS: 36415; 80048; 85652; 86140

== ENCOUNTER 2024-04-29 01:33 | Outpatient (CLI) | payer OTHER, SELFPAY ==
[2024-04-29 15:22] LABS: HCT 42.6 % (40.0-50.0); HGB 14.3 g/dL (13.5-17.5); MCH 34.7 pg (27.0-33.0); MCHC 33.6 % (32.0-36.0); MCV 103 fL (80-95); MPV 9.1 fL (8.0-11.0); Platelet Count 299 10^3/uL (130-400); RBC 4.12 10^6/uL (4.36-5.78); RDW 12.3 % (11.8-14.1); RDW-SD 46.9 fL
[2024-04-29 16:09] LABS: Anion Gap 8.5 mmol/L (3-11); BUN 24 mg/dL (7-18); CO2 28.5 mmol/L (21.0-32.0); Calcium 8.9 mg/dL (8.5-10.1); Chloride 105 mmol/L (98-107); Estimated GFR 88.88 (mL/min/1.73m2); Glucose 94 mg/dL (74-106); Potassium 4.3 mmol/L (3.5-5.1); Sodium 142 mmol/L (136-145)
[2024-04-29 16:13] LABS: C-Reactive Protein < 0.50 mg/dL (<or=0.5)
== END 2024-04-29 01:34 | disposition home or self-care (01) ==
LOC: LBO 01:33
PROVIDERS: PCP Nurse Practitioner Family; Visit Provider Nurse Practitioner Family
DX: K57.32 Diverticulitis of large intestine without perforation or abscess without bleeding (principal)
CPT/HCPCS: 36415; 80048; 85027; 86140

== ENCOUNTER 2025-02-19 11:56 | Outpatient (CLI) | payer OTHER, SELFPAY ==
--- NOTE | 2025-02-19 11:53 | DI.RAD_ITS ---
Exam(s) XR CHEST 2V PA LATERAL EXAM: XR CHEST 2V PA LATERAL CLINICAL HISTORY: cough, R05.9. TECHNIQUE: 2D digital imaging was performed. COMPARISON: No exams were available for comparison FINDINGS: 2 views: Heart size is normal. The mediastinum is not widened. Lungs are clear. No infiltrates nor pleural effusions. IMPRESSION: No acute pulmonary findings. DATA REPOSITORY: RADIATION DOSE DELIVERED:
== END 2025-02-19 12:16 ==
LOC: DI 12:04
PROVIDERS: PCP Nurse Practitioner Family; Visit Provider Physician Assistant
DX: R05.9 Cough, unspecified (principal)
CPT/HCPCS: 71046